=== PATIENT | female | born 1990 | race African-American/Black ===

== ENCOUNTER 2019-02-02 14:49 | Emergency (ER) | payer BC, OTHER ==
[2019-02-02 15:00] VITALS: BP 158/101; PULSE 82; TEMP 98.5; BMI 36.1
[2019-02-02] MEDS ORDERED: DIPHTH,PERTUSS(ACELL),TET 0.5 ML DISP.SYRIN IM ONE ×2 (15:00→15:25)
--- NOTE | 2019-02-02 15:00 | PDOC ---
Rapid Medical Evaluation Time Seen by Provider: 02/02/19 14:56 Medical Evaluation: Allergies Allergy/AdvReac Type Severity Reaction Status Date / Time No Known Allergies Allergy Verified 09/18/12 14:23 02/02/19 14:58 I have performed a brief in-person evaluation of this patient. The patient presents with a chief complaint of: laceration- RHD Pertinent physical exam findings: 0.25cm superficial linear laceration to palmar surface of right 5th finger over DIP I have ordered the following: Td The patient will proceed to the ED for further evaluation. Discharge Disposition - Diagnosis Laceration - Referrals - Patient Instructions - Post Discharge Activity
--- NOTE | 2019-02-02 15:03 | PDOC ---
History of Present Illness - General Chief Complaint: Laceration Stated Complaint: FINGER CUT Time Seen by Provider: 02/02/19 14:56 History Source: Patient - History of Present Illness Initial Comments: 02/02/19 15:43 Chief complaint: Finger laceration Patient is a 28-year-old female with street of hypertension, on meds, did not take today who states she was cutting chicken with gloves on and the knife went through the glove and cut her right little finger. Patient is not up-to-date with tetanus. GENERAL/CONSTITUTIONAL: No fever, weakness. dizziness HEAD, EYES, EARS, NOSE AND THROAT: No change in vision. No ear pain or discharge. No sore throat. CARDIOVASCULAR: No chest pain RESPIRATORY: No shortness of breath or cough GASTROINTESTINAL: No pain, nausea, vomiting, diarrhea or constipation GENITOURINARY: No dysuria MUSCULOSKELETAL: No neck or back pain SKIN: No rash, + laceration NEUROLOGIC: No headache, vertigo, loss of consciousness, or loss of sensation. GENERAL: The patient is awake, alert, and fully oriented, in no acute distress. HEAD: Normal with no signs of trauma. EYES: Pupils equal, round and reactive to light, sclera anicteric, conjunctiva clear. ENT: pharynx: no erythema, no exudate, uvula midline NECK: supple CHEST: clear, nontender, rr ABD: soft, nontender BACK: no tenderness or signs of injury EXTREMITIES: Right upper extremity: Little finger less than 0.5 cm opening at the PIP on the palmar side, no swelling, no bleeding, able to flex and extend, neurovascular intact. Rest of extremities, normal range of motion, no edema. NEUROLOGICAL: Normal speech, normal gait. SKIN: Warm, Dry Past History - Past Medical History Allergies/Adverse Reactions: Allergies Allergy/AdvReac Type Severity Reaction Status Date / Time No Known Allergies Allergy Verified 02/02/19 15:00 Home Medications: Ambulatory Orders NK [No Known Home Medication] 02/02/19 Asthma: No Cancer: No Cardiac Disorders: No COPD: No Diabetes: No HTN: Yes Seizures: No Thyroid Disease: No - Suicide/Smoking/Psychosocial Hx Smoking History: Current some day smoker Information on smoking cessation initiated: No Hx Alcohol Use: No Drug/Substance Use Hx: Yes Hx Substance Use Treatment: No *Physical Exam - Vital Signs Last Vital Signs Temp Pulse Resp BP Pulse Ox 98.5 F 82 16 158/101 H 100 02/02/19 14:57 02/02/19 14:57 02/02/19 14:57 02/02/19 14:57 02/02/19 14:57 Medical Decision Making - Medical Decision Making 02/02/19 15:45 28-year-old female with history of hypertension, on meds but did not take today who had very small skin opening to the fifth right finger after missing chicken and knife point cut finger. No signs of tendon injury, very superficial small laceration, no bleeding, full range of motion, no signs of infection. No indication for suturing or wound closure. Patient needs Tdap. Patient has her blood pressure medicine and will take here. Patient is asymptomatic from her hypertension, possibly some of it is due to cutting her finger. There is no indication for further evaluation other than having patient take her medicine. Was vigorously cleaned, bacitracin applied. Patient will get wound care and return instructions Discussed issues, findings, results, applicable medications and treatments and follow-up. All these were understood and all questions were answered *DC/Admit/Observation/Transfer Diagnosis at time of Disposition: Laceration - Discharge Dispostion Disposition: HOME Condition at time of disposition: Stable Decision to Admit order: No - Referrals - Patient Instructions Printed Discharge Instructions: Skin Wound Additional Instructions: Clean with soap and water 2-3 times daily, apply bacitracin Have her reevaluated if redness, pus, fever or getting worse Followup with your doctor take your blood pressure medication and follow up with your doctor - Post Discharge Activity
[2019-02-02] MEDS ORDERED: BACITRACIN 15 GM TUBE TOPICAL OINTMENT ONE (15:32)
[2019-02-02] MEDS ORDERED: BACITRACIN 15 GM TUBE TOPICAL OINTMENT TP ONE (15:32)
== END 2019-02-02 15:30 | disposition home or self-care (01) ==
LOC: JERFT 14:49
PROC: 3E0234Z Introduction of Serum, Toxoid and Vaccine into Muscle, Percutaneous Approach (ICD-10-PCS; principal; 2019-02-02)
DX: S61.216A Laceration without foreign body of right little finger without damage to nail, initial encounter (principal); W26.0XXA Contact with knife, initial encounter; Y93.G1 Activity, food preparation and clean up; Y92.010 Kitchen of single-family (private) house as the place of occurrence of the external cause; Y99.8 Other external cause status
CPT/HCPCS: 90715; 99281-25

== ENCOUNTER 2019-09-25 07:05 | Inpatient (IN) | payer BC ==
[2019-09-25 08:42] LABS: BASO % 0.4 % (0-2.0); EOS % 0.6 % (0-4.5); HEMATOCRIT 36.2 % (32.4-45.2); HEMOGLOBIN 12.1 GM/dL (10.7-15.3); LYMPH % 20.4 % (8-40); MCH 31.2 pg (25.7-33.7); MCHC 33.5 g/dl (32.0-36.0); MEAN PLT VOLUME 7.6 fl (7.5-11.1); MONO % 11.6 % (3.8-10.2); PLATELET COUNT 215 K/MM3 (134-434); RBC 3.89 M/mm3 (3.60-5.2); RDW 13.3 % (11.6-15.6); WHITE BLOOD COUNT 6.9 K/mm3 (4.0-10.0)
[2019-09-25 09:05] LABS: INR 0.96 (0.83-1.09); PROTHROMBIN TIME (PATIENT) 11.3 SEC (9.7-13.0)
[2019-09-25 09:09] LABS: ACTIVATED PTT 27.2 SECONDS (25.2-36.5)
[2019-09-25 09:11] VITALS: BMI 40.7
[2019-09-25 09:12] LABS: BLOOD UREA NITROGEN 13.4 mg/dL (7-18); CALCIUM 8.5 mg/dL (8.5-10.1); CREATININE 0.7 mg/dL (0.55-1.3)
[2019-09-25] MEDS ORDERED: BUTORPHANOL TARTRATE 1 MG/ML VIAL IVPB ONE (10:40)
[2019-09-25] MEDS ORDERED: DINOPROSTONE 10 MG VAGINAL SUPPOSITORY VG ONE (10:42)
--- NOTE | 2019-09-25 10:45 | HP ---
Past Medical History - Primary Care Physician PCP:: Jennifer Amanda - Admission Chief Complaint: Chronic Hypertension. iup at 38 week History Source: Patient Limitations to Obtaining History: No Limitations - Past Medical History Cardiovascular: Yes: HTN ...: 5 ...Para: 3 ...Term: 2 ...: 1 ...Spon : 0 ...Induced : 1 ...Multiple Gestation: 0 ...LMP: 01/10/19 ... Weeks Gestation by Dates: 36.5 ...EDC by Dates: 10/18/19 ...EDC by Sono: 10/09/19 Additional Medical History: Past hx of chlamydia - Past Surgical History Past Surgical History: Yes: None Hx Myomectomy: No Hx Transabdominal Cerclage: No - Smoking History Smoking history: Never smoked Have you smoked in the past 12 months: No - Alcohol/Substance Use Hx Alcohol Use: No Home Medications - Allergies Allergies/Adverse Reactions: Allergies Allergy/AdvReac Type Severity Reaction Status Date / Time No Known Allergies Allergy Verified 09/25/19 08:45 - Home Medications Home Medications: Ambulatory Orders Labetalol HCl 100 mg PO BID 06/22/19 Vits96/Iron Fum/Folic [ Tablet] 1 each PO DAILY 06/22/19 Aspirin 81 mg PO DAILY 09/25/19 Review of Systems - Review of Systems Constitutional: reports: No Symptoms Eyes: reports: No Symptoms HENT: reports: No Symptoms Neck: reports: No Symptoms Cardiovascular: reports: No Symptoms Respiratory: reports: No Symptoms Gastrointestinal: reports: No Symptoms Genitourinary: reports: No Symptoms Breasts: reports: No Symptoms Reported Musculoskeletal: reports: No Symptoms Integumentary: reports: No Symptoms Neurological: reports: No Symptoms Endocrine: reports: No Symptoms Hematology/Lymphatic: reports: No Symptoms Psychiatric: reports: No Symptoms Physical Exam - Maternity Vital Signs: Vital Signs Temperature 98.2 F 09/25/19 08:58 Pulse Rate 91 H 09/25/19 08:58 Respiratory Rate 20 09/25/19 08:58 Blood Pressure 130/80 09/25/19 08:58 O2 Sat by Pulse Oximetry (%) Constitutional: Yes: Well Nourished, No Distress Breast(s): Yes: WNL - Abdominal Exam/OB Number of Fetuses: Single Presentation: Vertex Contractions: No Heart Rate Location: [facility] Category: I - Vaginal Exam/OB Dilatation (cm): closed Amniotic Membrane Status: Intact Presentation: Vertex/Position Station: -1 - Physical Exam Musculoskeletal: Yes: WNL Extremities: Yes: WNL Edema: No Psychiatric: Yes: WNL, Alert, Oriented - Labs Lab Results: CBC, BMP 09/25/19 08:25 09/25/19 08:25 Problem List - Problems (1) Chronic hypertension Code(s): I10 - ESSENTIAL (PRIMARY) HYPERTENSION Assessment/Plan Chronic HTN IUP at 40 week Plan Admit cervidil
--- NOTE | 2019-09-25 12:51 | PN ---
Ante-Partal Exam - Subjective Vital Signs: Vital Signs Temperature 98.5 F 09/25/19 12:00 Pulse Rate 97 H 09/25/19 12:00 Respiratory Rate 20 09/25/19 12:00 Blood Pressure 154/97 09/25/19 12:00 O2 Sat by Pulse Oximetry (%) Bleeding: No Headache: No Visual changes: No Right upper quadrant pain: No - Contractions Contractions: Yes Monitor Mode: External - Exam during Labor Variability: Moderate Category: I Monitor Decelerations: None Exam: Vaginal Dilatation (cm): 2 Amniotic Membrane Status: Intact Presentation: Vertex Station: -1 - Intrapartum Hemorrhage Risk Risk Score: 0 Risk Level: Low Risk - Assessment/Plan Assessment/Plan: chronic HTN iup at 38 week cervidil induction due to HTN Plan cervidil placed
[2019-09-25] MEDS: LABETALOL HCL 200 MG TABLET (FP) PO SCH ×2 (13:10→21:44)
[2019-09-25 14:11] LABS: URIC ACID 3.6 mg/dL (2.6-7.2)
[2019-09-25] MEDS: ELECTROLYTE-148 SOLN 1,000 ML IV SCH (17:15)
[2019-09-25] MEDS ORDERED: LABETALOL HCL 200 MG TABLET (FP) ONE (21:40)
--- NOTE | 2019-09-25 22:07 | PN ---
Ante-Partal Exam - Subjective Subjective: Pt doing well with cervidil no ROM NO bleeding Pt on labetalol 200mg TID Vital Signs: Vital Signs Temperature 98.6 F 09/25/19 21:00 Pulse Rate 85 09/25/19 21:00 Respiratory Rate 20 09/25/19 21:00 Blood Pressure 157/98 09/25/19 21:00 O2 Sat by Pulse Oximetry (%) Bleeding: No Headache: No Visual changes: No Right upper quadrant pain: No - Contractions Contractions: Yes Regularity: Regular Intensity: Moderate Monitor Mode: External - Exam during Labor Variability: Moderate Heart Rate Location: [facility] Category: I Monitor Accelerations: Present Monitor Decelerations: None Exam: Vaginal Dilatation (cm): 3 Effacement (%): 80 Amniotic Membrane Status: Ruptured Amniotic Fluid: Clear Presentation: Vertex Station: -2 - Intrapartum Hemorrhage Risk Risk Score: 0 Risk Level: Low Risk - Assessment/Plan Assessment/Plan: IUP at 38 weeks AROM Cat 1 x 4 Chronic Hypertension plan Labetalol 200mg TID pit aug if needed
[2019-09-25] MEDS ORDERED: OXYTOCIN 30 UNITS in 0.9% NS 30 UNIT/500 ML INFUS.BAG IVPB SCH (22:30)
[2019-09-25] MEDS ORDERED: OXYTOCIN 30 UNITS in 0.9% NS 30 UNIT/500 ML INFUS.BAG IVPB ONE (23:06)
[2019-09-25] MEDS ORDERED: AMPICILLIN SODIUM 2 GM VIAL ONE (23:56)
[2019-09-26] MEDS: ELECTROLYTE-148 SOLN 1,000 ML IV SCH
[2019-09-26] MEDS ORDERED: AMPICILLIN - 2 GM in SODIUM CHLORIDE 100 ML IVPB ONE
[2019-09-26] MEDS ORDERED: BUTORPHANOL TARTRATE 1 MG/ML VIAL ONE ×2 (01:38)
[2019-09-26] MEDS ORDERED: OXYTOCIN 20 UNITS in 0.9% NS 20 UNIT/1,000 ML INFUS.BAG IV ONE ×2 (03:02→04:18)
[2019-09-26] MEDS ORDERED: AMPICILLIN - 1 GM in SODIUM CHLORIDE 100 ML IVPB SCH (04:00)
[2019-09-26] MEDS: LABETALOL HCL 200 MG TABLET (FP) PO SCH ×3 (06:39→21:17)
[2019-09-26] MEDS ORDERED: IBUPROFEN 600 MG TABLET (FP) PO PRN (06:57)
[2019-09-26] MEDS ORDERED: BISACODYL 10 MG SUPP.RECT RC PRN (06:57)
[2019-09-26] MEDS ORDERED: BENZOCAINE 28 GM HEMORRHOIDAL OINTMENT PR PRN (06:57)
[2019-09-26] MEDS ORDERED: BENZOCAINE 20% 57 GM BOTTLE TP PRN (06:57)
[2019-09-26] MEDS ORDERED: METHYLERGONOVINE MALEATE 0.2 MG/1 ML AMP IM PRN (06:57)
[2019-09-26] MEDS ORDERED: ACETAMINOPHEN 325 MG TABLET (FP) PO PRN (06:57)
[2019-09-26] MEDS ORDERED: WITCH HAZEL 50% (TUCKS) 40 PAD/JAR PAD TP PRN (06:57)
--- NOTE | 2019-09-26 06:59 | PN ---
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
[2019-09-26] MEDS ORDERED: OXYTOCIN 20 UNITS in 0.9% NS 20 UNIT/1,000 ML INFUS.BAG IV SCH (07:00)
--- NOTE | 2019-09-27 07:59 | PN ---
Post Note - Post Date of Delivery: 09/26/19 Post Day: 1 Vital Signs: Vital Signs - 24 hr 09/26/19 09/26/19 09/26/19 10:00 13:22 17:52 Temperature 98.2 F 98.2 F 97.7 F Pulse Rate 100 H 96 H 88 Respiratory 24 H 22 H 20 Rate Blood Pressure 137/85 142/82 144/89 09/26/19 09/27/19 21:24 02:00 Temperature 98.0 F 98.0 F Pulse Rate 92 H 104 H Respiratory 20 20 Rate Blood Pressure 149/97 121/71 Labs: Laboratory Results - last 24 hr 09/25/19 09/25/19 20:30 20:30 Cord Blood pH Cancelled Cancelled Cord Blood PCO2 Cancelled Cancelled Cord Blood PO2 Cancelled Cancelled Cord Blood HCO3 Cancelled Cancelled Cord Base Excess Cancelled Cancelled - Subjective Subjective: No Complaints - Objective Afebrile: Yes Breast: Not engorged Abdomen: Soft, Non-tender Uterus: Fundus firm Vagina: Scant lochia Extremities: Non-tender - Assessment/Plan (1) Chronic hypertension Assessment: S/P Normal Plan: Routine Care
[2019-09-27 08:55] LABS: BASO % 0.3 % (0-2.0); EOS % 0.6 % (0-4.5); HEMATOCRIT 31.8 % (32.4-45.2); HEMOGLOBIN 10.9 GM/dL (10.7-15.3); LYMPH % 26.5 % (8-40); MCH 31.7 pg (25.7-33.7); MCHC 34.4 g/dl (32.0-36.0); MEAN CELL VOLUME 92.1 fl (80-96); MEAN PLT VOLUME 7.5 fl (7.5-11.1); MONO % 8.3 % (3.8-10.2); NEUT % 64.3 % (42.8-82.8); PLATELET COUNT 230 K/MM3 (134-434); RBC 3.45 M/mm3 (3.60-5.2); RDW 13.4 % (11.6-15.6); WHITE BLOOD COUNT 8.6 K/mm3 (4.0-10.0)
[2019-09-27] MEDS: LABETALOL HCL 200 MG TABLET (FP) PO SCH (20:50)
[2019-09-28] MEDS: LABETALOL HCL 200 MG TABLET (FP) PO SCH ×2 (05:31→06:03)
[2019-09-28 08:11] LABS: BASO % 0.5 % (0-2.0); EOS % 0.9 % (0-4.5); HEMATOCRIT 31.1 % (32.4-45.2); HEMOGLOBIN 10.6 GM/dL (10.7-15.3); LYMPH % 31.3 % (8-40); MCH 31.5 pg (25.7-33.7); MCHC 34.2 g/dl (32.0-36.0); MEAN CELL VOLUME 92.1 fl (80-96); MEAN PLT VOLUME 7.5 fl (7.5-11.1); MONO % 8.8 % (3.8-10.2); NEUT % 58.5 % (42.8-82.8); PLATELET COUNT 210 K/MM3 (134-434); RBC 3.37 M/mm3 (3.60-5.2); RDW 13.6 % (11.6-15.6); WHITE BLOOD COUNT 6.2 K/mm3 (4.0-10.0)
--- NOTE | 2019-09-28 09:14 | DS ---
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: Vital Signs Temperature 97.9 F 09/28/19 06:00 Pulse Rate 76 09/28/19 06:00 Respiratory Rate 20 09/28/19 06:00 Blood Pressure 154/86 09/28/19 06:00 O2 Sat by Pulse Oximetry (%) Constitutional: Yes: No Distress Eyes: Yes: Conjunctiva Clear HENT: Yes: Atraumatic Neck: Yes: Supple Cardiovascular: Yes: Regular Rate and Rhythm Respiratory: Yes: Regular Gastrointestinal: Yes: Normal Bowel Sounds Pelvis: Yes: WNL External Genitalia: Yes: Normal Vaginal Exam: Yes: Normal Cervix: Yes: Normal Uterus: Yes: Firm ....Post : Yes: Uterus firm, Moderate lochia serosa Breast(s): Yes: WNL Musculoskeletal: Yes: WNL Extremities: Yes: WNL Neurological: Yes: Alert, Oriented ...Motor Strength: WNL Psychiatric: Yes: Alert, Oriented Labs: CBC, BMP 09/28/19 07:28 09/25/19 08:25 Delivery - Delivery Vaginal Delivery: No Problems, Spontaneous Type of Anesthesia: None Episiotomy/Laceration: None EBL (cc): 300 Delivery, Single - Stages of Labor Date 1st Stage Initiatied: 09/25/19 Time 1st Stage Initiated: 21:50 Date 2nd Stage Initiated: 09/26/19 Time 2nd Stage Initiated: 00:00 Date of Delivery: 09/26/19 Time of Delivery: 03:13 Time Placenta Delivered: 03:18 - 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 Present: No Gender: Male Weight: 7 lb 6 oz Position: Left, OA Total Hours ROM (Hrs/Mins): 5 HOURS/ 28 MINUTES - 1 Minute Total Score: 9 5 Minutes Total Score: 9 - Mouthcard Feeding Plan Initial Plan: Exclusive throughout hospitalization Discharge Summary Problems reviewed: Yes Reason For Visit: INDUCTION OF LABOR Current Active Problems Chronic hypertension (Acute) Procedures: Principal: Normal spontaneous vaginal delivery Hospital Course: Routine care Health Concerns: Thromboembolic event Plan of Treatment: Ambulation Analgesia as needed F/U with MD in 6 weeks Goals: Resume regular activities in 4-6 weeks Condition: Good - Instructions Diet, Activity, Other Instructions: Physical activity Resume your normal everyday activity as tolerated no heavy lifting or exercise until seen by your surgeon. You may walk unlimited des of and climb stairs. You may resume driving the car when you feel safe and comfortable behind the wheel. No sexual activity as instructed. Wound care If you have a bandage, leave it on, and keep dry for 48-72 hours. After that time discard the outer bandage. If they are tapes on the skin under the out of bandage leave them in place. They will peel off in the next 7 to 10 days. Do Not Peel them off. You may shower the day after surgery. If there are tapes present on the skin, you may shower over them. Diet There are no dietary restrictions. Eat healthy, high-fiber foods. Drink 6 to 8 glasses of liquid each day. This will assist in keeping your bowels are regular. Pain management You may take Tylenol or acetaminophen or Ibuprofen (for example, Motrin, Advil etc.) from my pain prescription medication is ordered should be taken as presc ribed for moderate to severe pain. Call MD for any of the following: Severe pain not relieved by medication Fever of 101 or higher Excessive bleeding or drainage on dressing Inability to urinate Referrals: Jennifer Amanda MD [Staff Physician] - Disposition: HOME - Home Medications Comprehensive Discharge Medication List: Ambulatory Orders Labetalol HCl 100 mg PO BID 06/22/19 Vits96/Iron Fum/Folic [ Tablet] 1 each PO DAILY 06/22/19 Aspirin 81 mg PO DAILY 09/25/19
[2019-09-28 12:32] VITALS: BP 146/89; PULSE 78; TEMP 97.6
== END 2019-09-28 14:30 | disposition home or self-care (01) | DRG 807 ==
LOC: JLDR 07:05 → J3W 09-26 04:45
PROVIDERS: ADMIT Obstetrics & Gynecology; ATTEND Obstetrics & Gynecology
PROC: 3E0P7VZ Introduction of Hormone into Female Reproductive, Via Natural or Artificial Opening (ICD-10-PCS; 2019-09-25)
PROC: 10E0XZZ Delivery of Products of Conception, External Approach (ICD-10-PCS; principal; 2019-09-26)
DX: O10.92 Unspecified pre-existing hypertension complicating childbirth (principal); Z37.0 Single live birth; Z3A.38 38 weeks gestation of pregnancy
CPT/HCPCS: 36415; 36600; 59409; 80048; 82803; 82977; 84450; 84460; 84550; 85025; 85044; 85610; 85730; 86593; 86850; 86900; 86901; 87389

== ENCOUNTER 2020-12-01 17:36 | Emergency (ER) | payer BC ==
[2020-12-01 17:53] VITALS: BMI 40.1
[2020-12-01] MEDS ORDERED: KETOROLAC TROMETHAMINE 60 MG/2 ML VIAL IM ONE (18:13)
[2020-12-01] MEDS ORDERED: LABETALOL HCL 100 MG TABLET (FP) PO ONE (18:13)
[2020-12-01] MEDS ORDERED: LABETALOL HCL 100 MG TABLET (FP) ONE (18:21)
[2020-12-01] MEDS ORDERED: KETOROLAC TROMETHAMINE 60 MG/2 ML VIAL ONE (18:21)
[2020-12-01 18:27] LABS: HCG,QUALITATIVE URINE Positive
[2020-12-01 18:34] LABS: EPITHELIAL CELLS FEW /hpf
[2020-12-01 19:16] LABS: BASO % 3.7 % (0-2.0); EOS % 0.1 % (0-4.5); HEMATOCRIT 40.9 % (32.4-45.2); HEMOGLOBIN 13.8 GM/dl (10.7-15.3); LYMPH % 7.8 % (8-40); MCH 30.7 pg (25.7-33.7); MCHC 33.8 g/dl (32.0-36.0); MEAN CELL VOLUME 90.8 fl (80-96); MEAN PLT VOLUME 8.3 fl (7.5-11.1); MONO % 3.3 % (3.8-10.2); NEUT % 85.1 % (42.8-82.8); PLATELET COUNT 235 K/MM3 (134-434); RBC 4.51 M/mm3 (3.60-5.2); RDW 12.8 % (11.6-15.6); WHITE BLOOD COUNT 7.7 K/mm3 (4.0-10.8)
[2020-12-01 19:32] LABS: ALBUMIN 4.4 g/dl (3.4-5.0); ALK PHOS 70 U/L (45-117); ANION GAP 11 MMOL/L (8-16); BILIRUBIN,TOTAL 0.6 mg/dl (0.2-1); CALCIUM 8.7 mg/dl (8.5-10); CHLORIDE 99 mmol/L (98-107); CO2 24 mmol/L (21-32); CREATININE 0.7 mg/dl (0.55-1.3); GLUCOSE,RANDOM 138 mg/dl (74-106); SGOT/AST 18 U/L (15-37); SGPT/ALT 19 U/L (13-61); SODIUM 134 mmol/L (136-145); TOT PROT 7.5 g/dl (6.4-8.2)
[2020-12-01 22:37] VITALS: BP 160/105; PULSE 84; TEMP 98.2
== END 2020-12-01 22:57 | disposition short-term general hospital (02) ==
LOC: FER 17:36
PROC: 3E0233Z Introduction of Anti-inflammatory into Muscle, Percutaneous Approach (ICD-10-PCS; principal; 2020-12-01)
DX: O20.8 Other hemorrhage in early pregnancy (principal)
CPT/HCPCS: 36415; 76817-TC; 80053; 81003; 81015; 84702; 84703; 85025; 86850; 86900; 86901; 87077; 87086; 99284-25

== ENCOUNTER 2023-03-09 00:20 | Emergency (ER) | payer BC ==
[2023-03-09 00:35] VITALS: TEMP 97.9; BMI 39.5
[2023-03-09] MEDS ORDERED: morphine CARPU-JECT 4 MG/1 ML DISP.SYRIN IVPUSH ONE (00:35)
[2023-03-09] MEDS ORDERED: morphine SULFATE 4 MG/ML VIAL ONE (00:40)
[2023-03-09] MEDS ORDERED: ONDANSETRON 4 MG/2 ML VIAL ONE (01:48)
[2023-03-09 01:49] LABS: HEMATOCRIT 37.9 % (32.4-45.2); HEMOGLOBIN 12.9 GM/dL (10.7-15.3); MCH 30.7 pg (25.7-33.7); MCHC 34.2 g/dl (32.0-36.0); MEAN CELL VOLUME 89.7 fl (80-96); MEAN PLT VOLUME 7.9 fl (7.5-11.1); PLATELET COUNT 276 10^3/uL (134-434); RBC 4.22 M/mm3 (3.60-5.2); RDW 13.7 % (11.6-15.6)
[2023-03-09 02:30] LABS: POTASSIUM 4.1 mmol/L (3.5-5.1)
[2023-03-09 02:32] LABS: CALCIUM 8.2 mg/dL (8.5-10.1)
[2023-03-09 02:33] LABS: ALBUMIN 3.7 g/dl (3.4-5.0); BLOOD UREA NITROGEN 20.6 mg/dL (7-18)
[2023-03-09 02:36] LABS: PH,URINE 7.5 (5.0-8.0); URINE APPEARANCE CLEAR; URINE BILIRUBIN NEGATIVE (NEGATIVE); URINE COLOR YELLOW; URINE GLUCOSE (UA) NEGATIVE (NEGATIVE); URINE KETONE NEGATIVE (NEGATIVE); URINE LEUK ESTERASE NEGATIVE (NEGATIVE); URINE NITRITE NEGATIVE (NEGATIVE); URINE PROTEIN NEGATIVE (NEGATIVE); URINE UROBILINOGEN 0.2 mg/dL (0.2-1.0)
[2023-03-09 02:37] LABS: BILIRUBIN,TOTAL 0.1 mg/dL (0.2-1); TOT PROT 6.7 g/dl (6.4-8.2)
[2023-03-09 05:16] VITALS: BP 158/97; PULSE 73; RESP 16
[2023-03-09] MEDS ORDERED: ONDANSETRON 4 MG/2 ML VIAL IVPUSH ONE (05:40)
[2023-03-09] MEDS ORDERED: METHOTREXATE SODIUM/PF 25 MG/ML VIAL IM ONE (06:52)
== END 2023-03-09 10:24 | disposition home or self-care (01) ==
LOC: FER 00:20
PROC: 3E033NZ Introduction of Analgesics, Hypnotics, Sedatives into Peripheral Vein, Percutaneous Approach (ICD-10-PCS; principal; 2023-03-09)
PROC: 3E033GC Introduction of Other Therapeutic Substance into Peripheral Vein, Percutaneous Approach (ICD-10-PCS; 2023-03-09)
PROC: 3E02305 Introduction of Other Antineoplastic into Muscle, Percutaneous Approach (ICD-10-PCS; 2023-03-09)
DX: O00.90 Unspecified ectopic pregnancy without intrauterine pregnancy (principal)
CPT/HCPCS: 36415; 76817-TC; 80053; 81003; 81025; 83690; 84702; 85027; 86850; 86900; 86901; 87086; 99284-25; J9260